=== PATIENT | male | born 1990 | race Caucasian/White ===

== ENCOUNTER 2017-08-12 10:20 | Inpatient (IN) | payer BC, OTHER ==
--- NOTE | 2017-08-11 20:20 | NUR ---
EMMANUEL Avendaño Pt reports abdominal cramps. EMMANUEL Avendaño administered. Addendum: 08/13/17 at 0241 by APRIL KRUGER RN Incorrect note date.
[~2017-08-12] VITALS: Ht 180.3 cm; Wt 95.3 kg
[2017-08-12 11:15] VITALS: BP 120/80
--- NOTE | 2017-08-12 12:21 | NUR ---
PREADMISSION NOTE 27 year old admitted for substance abuse and detox for ETOH, Xanax, opiates/oxycodone. BP 120/80. Pulse 77. RR 16. Oxygen saturation 97 percent. Appearance calm, no sweating or tremors, no flushing. No history of seizure. NKA, NKFA. History of anxiety. Substance use history: 1. ETOH, using since age 16 years old, using daily, 15-18 beers/day., using at this rate x 4 years. Last use one hour prior to admission, states since this am he has had 40 oz. beer plus 4 cans of beer, 100 ml tequila. 2. Xanax, using since age 16 years old. Using daily 3 mg/day PO. Last use 0545, took 2 mg. 3. Oxycodone, using 30-90 mg/day, PO. Using at this rate x 2 monthsLast use last night at 6 pm. Home medication list as follows but states he has not been taking his medications for 1-2months. Paxily 20 mg po QD for anxiety. Librium 0.5 mg PO gerry for anxiety and detox from ETOH. Pt escorted to room 302 by [facility]. Skin check done by CONSTANCE Fields, who states skin intact. RN to complete admission. Bed in low position and locked, side rails up x 2 and padded, call light within reach.
--- NOTE | 2017-08-12 12:30 | NUR ---
ADMISSION NOTE 27 year old admitted for substance abuse and detox for ETOH, Xanax, opiates/oxycodone. Vitals at 1115 in intake, BP 120/80. Pulse 77. RR 16. Oxygen saturation 97 percent. Appearance calm, no sweating or tremors, no flushing. Intake in progress. No history of seizure. NKA, NKFA. History of anxiety disorder. Substance use history: 1. ETOH, using since age 16 years old, using daily, 15-18 beers/day., using at this rate x 4 years. Last use one hour prior to admission, states since this am he has had 40 oz. beer plus 4 cans of beer, 100 ml tequila. 2. Xanax, using since age 16 years old. Using daily 3 mg/day PO. Last use 0545, took 2 mg. 3. Oxycodone, using 30-90 mg/day, PO. Using at this rate x 2 monthsLast use last night at 6 pm. Home medication list as follows but states he has not been taking his medications for 1-2months. Paxily 20 mg po QD for anxiety. Librium 0.5 mg PO gerry for anxiety and detox from ETOH. 1230, Pt escorted to room 302 by [facility]. Pt is primary source of information. CIWA 1 and COWS 1. Skin check done by CONSTANCE Fields, who states skin intact. UDS provided by patient. Pt awake, alert, oriented x 4, gait steady, ambulatory without assistance. Speech coherent. Weight 210 lb., height 5 foot 11 inches. Denies history of seizure. Refusing flu and pneumonia vaccines, states he "is not comfortable taking it", would not be more specific. Full code. Regular diet. No home medications brought to [facility]. Pt states history of home medication of Paxil 20 mg per day but that he has not taken in 2 months and does not want to take the medication. Pt did not bring medication with him to [facility]. Pt also states he was prescribed Librium one month ago to help him with detox at home. History of admission for suicide attempt within the last month. Pt states he was intoxicated and does not remember the event, but was told that he threatened to kill himself with a knife. Family called 911. Pt reports that he was released after 24 hours and that he was determined to not be suicidal. Also history of open reduction and internal fixation of fracture of right hand. Pt has bruise to above right eye, skin is intact, bruise is pink in color. Pt reports he received the bruise while practicing martial arts. Photo not taken as skin is intact, no wound care needed. Fall and seizure precautions in place. Lives with renu. Only surgery of open reduction and internal fixation fracture of right hand. Denies pain. Family history of mother and father having alcoholism and sister with history of heroin use. History of detox treatment at age 19, but when discharged did not go to sober living but instead went home and felt he did not have a problem. Internal motivation for this admission is that "I stole from my mom", also states his substance use is affecting his relationships with fiance and family and is also hurting them. Pt cooperative, friendly, does not appear intoxicated other than flushed face. States he flew in from [place] and so is fatigued. Skin warm, pink, good capillary refill, lungs clear to auscultation, S1and S2 heart tones regular. No tremors or sweating. Denies tingling, nausea, headache, pain. No edema. Abdomen soft, bowel sounds WNL and present all 4 quadrants. Pt oriented to unit and equipment. Lunch provided. Bed in low position and locked, side rails up x 2 and padded, call light within reach. Will continue to monitor.
[2017-08-12] MEDS ORDERED: LORAZEPAM 1 MG TABLET PO PRN ×2 (13:30)
[2017-08-12] MEDS ORDERED: ONDANSETRON 4 MG/2 ML VIAL IM PRN (13:30)
[2017-08-12] MEDS ORDERED: THIAMINE HCL 200 MG/2 ML VIAL IM ONE (13:30)
[2017-08-12] MEDS ORDERED: ACETAMINOPHEN 325 MG TABLET PO PRN (13:30)
[2017-08-12] MEDS ORDERED: MAG HYDROX/AL HYDROX/SIMETH 30 ML LIQUID UDC PO PRN (13:30)
[2017-08-12] MEDS ORDERED: BUPRENORPHINE HCL 2 MG TAB.SUBL SL PRN (13:30)
[2017-08-12] MEDS ORDERED: METHOCARBAMOL 750 MG TABLET PO PRN (13:30)
[2017-08-12] MEDS ORDERED: LORAZEPAM 2 MG/1 ML VIAL IM PRN (13:30)
[2017-08-12] MEDS ORDERED: ONDANSETRON ODT 4 MG TAB.RAPDIS SL PRN (13:30)
[2017-08-12] MEDS ORDERED: IBUPROFEN 600 MG TABLET PO PRN (13:30)
[2017-08-12] MEDS ORDERED: LOPERAMIDE HCL 2 MG CAPSULE PO PRN ×2 (13:30)
[2017-08-12] MEDS ORDERED: CLONIDINE HCL 0.1 MG TABLET PO PRN (13:30)
[2017-08-12 14:53] LABS: *AMPHETAMINE, URINE NEGATIVE (NEGATIVE); *BARBITURATE, URINE NEGATIVE (NEGATIVE); *CANNABINOID, URINE NEGATIVE (NEGATIVE); *COCCAINE, URINE NEGATIVE (NEGATIVE); *OPIATE, URINE NEGATIVE (NEGATIVE); *PHENCYCLIDINE SCREEN,URINE NEGATIVE (NEGATIVE)
[2017-08-12 15:00] LABS: BASOPHILS % (AUTO) 0.5 % (0.0-2.0); EOSINOPHILS # (AUTO) 0.1 K/uL (0.0-0.7); EOSINOPHILS % (AUTO) 1.1 % (0.0-7.0); HEMATOCRIT 46.8 % (40-50); HEMOGLOBIN 15.8 G/DL (14.0-18.0); LYMPHOCYTES % (AUTO) 36.4 % (20.5-51.5); MEAN CORPUSCULAR HEMOGLOBIN 30.3 UUG (27.0-31.0); MEAN CORPUSCULAR HGB CONC 34 g/dL (32.0-37.0); MONOCYTES # (AUTO) 0.5 K/UL (0.1-1.30); MONOCYTES % (AUTO) 8.2 % (0.0-11.0); NEUTROPHILS % (AUTO) 53.8 % (38.5-71.5); PLATELET COUNT (AUTO) 247 K/UL (150-450); WHITE BLOOD COUNT (AUTO) 5.6 K/UL (4.0-11.2)
[2017-08-12 15:09] LABS: BILIRUBIN,TOTAL 0.3 mg/dL (0.2-1.0); CREATININE 1.3 mg/dL (0.6-1.3); POTASSIUM 4.4 mmol/L (3.5-5.1); TOTAL PROTEIN, SERUM 7.7 g/dL (6.4-8.2)
[2017-08-12 17:00] VITALS: BP 114/63
--- NOTE | 2017-08-12 19:31 | NUR ---
END OF SHIFT NOTE 27 year old admitted at 1230 today for substance abuse and detox for ETOH, Xanax, opiates/oxycodone. No history of seizure. NKA, NKFA. History of anxiety disorder. Skin intact. UDS provided by patient. Full code. Regular diet. Denies suicidal ideation, however, history of admission for suicide attempt within the last month. Pt states he was intoxicated and does not remember the event, but was told that he threatened to kill himself with a knife. Family called 911. Pt reports that he was released after 24 hours and that he was determined to not be suicidal. Suicidal assessment documented. Also history of open reduction and internal fixation of fracture of right hand. Pt has bruise to above right eye, skin is intact, bruise is pink in color. Pt reports he received the bruise while practicing martial arts. Photo not taken as skin is intact, no wound care needed. Fall and seizure precautions in place. CIWA 1 and COWS 1 at 1230. CIWA 1 and COWS 1 at 1700. Poor appetite, ate 25 percent of lunch and dinner. Fluid intake 650 ml, void x 1. Report given to night RN. Bed in low position and locked, side rails up x 2 and padded, call light within reach.
--- NOTE | 2017-08-12 19:45 | NUR ---
START OF SHIFT Received report from day shift nurse. Pt is lying in bed watching TV. He is a 27 yo male admitted to [facility] today for ETOH, BZD, and opioid dependence. He is A&O x4 and ambulatory. NKA, full code status, and on a regular diet. PMH of anxiety, suicide attempt this past month, right hand fracture. On admission pt reported drinking 15-18 beers per day, taking Xanax 3mg per day, and taking oxycodone 30-90mg per day. 5 day subutex and 5 day Ativan tapers to start tomorrow. He reports anxiety, stomach cramps, and is observed with facial flushing. Ativan order noted for tonight. Fall and seizure precautions in place. Bed is down with call light in reach.
[2017-08-12 20:00] VITALS: BP 119/74
[2017-08-12] MEDS: DICYCLOMINE HCL 20 MG TABLET PO PRN (20:19)
--- NOTE | 2017-08-12 20:20 | NUR ---
PRN Bentyl Pt reports abdominal cramps. PRN Bentyl administered.
[2017-08-12] MEDS ORDERED: LORAZEPAM 1 MG TABLET PO SCH (21:00)
--- NOTE | 2017-08-12 21:20 | NUR ---
PRN Kateryna reassessment Pt reports abdominal cramps are relieved.
[2017-08-12 23:30] VITALS: BP 127/78
[2017-08-12] MEDS ORDERED: diphenhydrAMINE 25 MG CAP PO ONE ×3 (23:30→23:49)
--- NOTE | 2017-08-12 23:31 | NUR ---
PRN Benadryl Pt reports inability to sleep. PRN Benadryl administered.
[2017-08-13] VITALS: BP 127/78
--- NOTE | 2017-08-13 00:31 | NUR ---
PRN Benadryl reassessment PRN Benadryl effective. Pt is lying in bed resting with eyes closed. Respirations even and unlabored. Safety measures in place.
[2017-08-13 04:00] VITALS: BP 120/69
--- NOTE | 2017-08-13 04:00 | NUR ---
0400 COWS and CIWA deferred COWS and CIWA ordered Q4HWA. Pt is lying in bed resting with eyes closed. Vital signs obtained. Safety measures in place.
--- NOTE | 2017-08-13 07:22 | NUR ---
END OF SHIFT Report provided to day shift nurse. Pt is lying in bed resting. He is a 27 yo male admitted to [facility] today for ETOH, BZD, and opioid dependence. He is A&O x4 and ambulatory. NKA, full code status, and on a regular diet. PMH of anxiety, suicide attempt this past month, right hand fracture. On admission pt reported drinking 15-18 beers per day, taking Xanax 3mg per day, and taking oxycodone 30-90mg per day. He is scheduled to start 5 day subutex and 5 day ativan tapers today. PRN Benadryl and Bentyl administered. Last COWS 3 and CIWA 2. He drank 480mL and slept for 5 hours. Fall and seizure precautions in place. Bed is down with call light in reach.
--- NOTE | 2017-08-13 08:00 | NUR ---
START OF SHIFT NOTE 27 yo male admitted to [facility] today for ETOH, BZD, and opioid dependence. He is A&O x4 and ambulatory. NKA, full code status, and on a regular diet. PMH of anxiety, suicide attempt this past month, right hand fracture. Received report from night RN. Last COWS 3 and CIWA 2 at midnight. Slept 5 hours. Received Ativan x 1 PRN at 2100 and also PRN Bentyl and Benadryl. On 0800 nursing rounds, pt is alert and oriented. Bed in low position, locked, side rails up x 2 and padded, call light within reach, will continue to monitor.
[2017-08-13] MEDS: MULTIVITAMINS,THERAPEUTIC TABLET PO SCH (08:12)
[2017-08-13] MEDS: THIAMINE HCL 100 MG TABLET PO SCH (08:12)
[2017-08-13] MEDS: FOLIC ACID 1 MG TABLET PO SCH (08:13)
[2017-08-13] MEDS: LORAZEPAM 1 MG TABLET PO SCH ×4 (08:13→21:37)
[2017-08-13] MEDS: BUPRENORPHINE HCL 2 MG TAB.SUBL SL SCH ×4 (08:13→21:37)
[2017-08-13 08:27] VITALS: BP 138/89
[2017-08-13] MEDS ORDERED: TUBERCULIN,PURIF.PROT.DERIV. 5 TU/0.1 ML TEST ID ONE (09:00)
[2017-08-13 09:06] LABS: HEPATITIS B SURFACE AG Negative (Negative)
[2017-08-13] MEDS: DICYCLOMINE HCL 20 MG TABLET PO PRN (11:48)
--- NOTE | 2017-08-13 11:48 | NUR ---
PRN MEDICATION ADMINISTRATION Pt reporting stomach cramps and nausea. Given Bentyl and Zofran SL PRN. Will reassess.
[2017-08-13 12:00] VITALS: BP 139/91
--- NOTE | 2017-08-13 12:16 | NUR ---
PRN MEDICATION REASSESSMENT Pt reports decrease in nausea after SL Zofran PRN. Will continue to monitor.
--- NOTE | 2017-08-13 12:48 | NUR ---
PRN MEDICATION REASSESSMENT Pt reports resolution of stomach cramps post Bentyl PRN and also resolution of nausea.
[2017-08-13 17:00] VITALS: BP 104/66
--- NOTE | 2017-08-13 19:00 | NUR ---
END OF SHIFT NOTE 27 yo male admitted to [facility] today for ETOH, BZD, and opioid dependence. He is A&O x4 and ambulatory. NKA, full code status, and on a regular diet. PMH of anxiety, suicide attempt this past month, right hand fracture. Received Bentyl and Zofran SL at 1148 for stomach cramping and mild nausea. Both medications effective for relief of symptoms. COW 7 and CIWA 10 at 1700, however pt received 1700 scheduled dose of Ativan 2 mg and Subutex 4 mg at 1700 as well. Eating 75-100 percent of meals, fluid intake 5000 ml, void x 8. Report given to night RN. Bed in low position, locked, side rails up x 2 and padded, call light within reach.
--- NOTE | 2017-08-13 19:45 | NUR ---
START OF SHIFT Received report from day shift nurse. Pt is lying in bed resting. He is a 27 yo male admitted to [facility] on 08/12 for ETOH, BZD, and opioid dependence. He is A&O x4 and ambulatory. NKA, full code status, and on a regular diet. PMH of anxiety, suicide attempt this past month, right hand fracture. Upon admission pt admitted to drinking 15-18 beers per day, taking Xanax 3mg per day, and taking oxycodone 30-90mg per day. 5 day subutex and 5 day Ativan tapers to start tomorrow. Medications are working well to manage withdrawal symptoms. He reports mild low back pain and mild headache. Pt denies SI/HI Fall and seizure precautions in place. Bed is down with call light in reach.
[2017-08-13 20:00] VITALS: BP 132/97
[2017-08-13] MEDS: diphenhydrAMINE 50 MG CAPSULE PO PRN (21:37)
--- NOTE | 2017-08-13 21:38 | NUR ---
PRN Benadryl Pt reports inability to sleep. PRN Benadryl administered.
--- NOTE | 2017-08-13 22:38 | NUR ---
PRN Benadryl reassessment PRN Benadryl effective. Pt is lying in bed resting with eyes closed. Respirations even and unlabored. Safety measures in place.
[2017-08-14] VITALS (7 sets, daily range): BP systolic 118–138; BP diastolic 68–91
--- NOTE | 2017-08-14 | NUR ---
0000 COWS and CIWA deferred COWS and CIWA ordered Q4HWA. Pt is lying in bed resting with eyes closed. Vital signs obtained. Safety measures in place.
--- NOTE | 2017-08-14 04:00 | NUR ---
0400 COWS and CIWA deferred COWS and CIWA ordered Q4HWA. Pt is lying in bed resting with eyes closed. Vital signs obtained. Safety measures in place.
--- NOTE | 2017-08-14 07:16 | NUR ---
END OF SHIFT Report provided to day shift nurse. Pt is lying in bed resting. He is a 27 yo male admitted to [facility] on 08/12 for ETOH, BZD, and opioid dependence. He is A&O x4 and ambulatory. NKA, full code status, and on a regular diet. PMH of anxiety, suicide attempt this past month, right hand fracture. Upon admission pt admitted to drinking 15-18 beers per day, taking Xanax 3mg per day, and taking oxycodone 30-90mg per day. 5 day subutex and 5 day Ativan tapers started yesterday. Pt is compliant with treatment. PRN Benadryl administered. Last COWS 3 and CIWA 3. He drank 1680mL and slept for 8 hours. Fall and seizure precautions in place. Bed is down with call light in reach.
--- NOTE | 2017-08-14 08:00 | NUR ---
START OF SHIFT NOTE 27 yo male admitted to [facility] today for ETOH, BZD, and opioid dependence. He is A&O x4 and ambulatory. NKA, full code status, and on a regular diet. PMH of anxiety, suicide attempt this past month, right hand fracture. Received report from night RN. Last COWS 3 and CIWA 3 at 8pm, slept 8 hours. Received PRN Benadryl. On 0800 nursing rounds, pt is alert and oriented. Bed in low position, locked, side rails up x 2 and padded, call light within reach, will continue to monitor.
[2017-08-14] MEDS: THIAMINE HCL 100 MG TABLET PO SCH (09:43)
[2017-08-14] MEDS: LORAZEPAM 1 MG TABLET PO SCH ×3 (09:43→20:18)
[2017-08-14] MEDS: FOLIC ACID 1 MG TABLET PO SCH (09:43)
[2017-08-14] MEDS: MULTIVITAMINS,THERAPEUTIC TABLET PO SCH (09:43)
[2017-08-14] MEDS: BUPRENORPHINE HCL 2 MG TAB.SUBL SL SCH ×3 (09:44→20:18)
--- NOTE | 2017-08-14 13:45 | NUR ---
Activity Group Note: Client attended activity group today. Client refused to participate in "Sequence" activity stating, "I would rather watch because I do not know how to play." Client appeared to have a depressed mood with flat affect. Client interacted with peers and left group 20 minutes early. facilities maintenance worker will continue to encourage participation.
[2017-08-14] MEDS: GABAPENTIN 300 MG CAPSULE PO SCH ×2 (14:41→20:18)
--- NOTE | 2017-08-14 17:19 | NUR ---
PRN MEDICATION ADMINISTRATION BP 138/90. Given Clonidine PRN. Will reassess.
--- NOTE | 2017-08-14 18:19 | NUR ---
PRN MEDICATION REASSESSMENT Given clonidine PRN at 1719 for BP 138/90. At 1819, BP 131/88.
--- NOTE | 2017-08-14 19:15 | NUR ---
START OF SHIFT Received 27 year old male patient admitted on 08/12/17 for ETOH, Xanax and Oxycodone dependency. Pt is full code with NKA. He reports a PMHx of anxiety, suicide attempt (this month), and fracture on right hand. He reports using ETOH 15-18 beers daily for 4 years. Last dose was 4 beers, 40 oz beer, and 4 shots of tequila. Xanax 3 mg daily for 5 months. Last dose was 2 mg on 08/12/17. And Oxycodone 30-90mg daily for 2 months. Last dose was 70 mg on 08/11/17. Pt currently receiving 5 day Subutex and 5 day Ativan taper and tolerating well. Per endorsement, pt received PRN Clonidine. Pt is alert and oriented x4, breathing is even and unlabored. Safety measures in place. Will continue to monitor.
--- NOTE | 2017-08-14 19:15 | NUR ---
END OF SHIFT NOTE 27 yo male admitted to [facility] today for ETOH, BZD, and opioid dependence. He is A&O x4 and ambulatory. NKA, full code status, and on a regular diet. PMH of anxiety, suicide attempt this past month, right hand fracture. Given Clonidine at 1719 for BP 138/90. At 1819, BP 131/88. Tolerating Ativan and Subutex taper as evidenced by the following scores. At 0800, COWS 3/CIWA 2. At 1200, COWS 4/CIWA 5. At 1700, COWS 2/CIWA 2. Consuming 100 percent of meals. Fluid intake 3000 ml. Void x 5. Stool x 0. Report given to night RN. Bed in low position, locked, side rails up x 2 and padded, call light within reach
[2017-08-14] MEDS: diphenhydrAMINE 50 MG CAPSULE PO PRN (20:18)
--- NOTE | 2017-08-14 20:18 | NUR ---
PRN BENADRYL Pt complains of inability to sleep. PRN Benadryl administered as ordered. Breathing is even and unlabored. Safety measures in place. Will monitor effectiveness.
--- NOTE | 2017-08-14 21:18 | NUR ---
PRN REASSESSMENT PRN medication not effective. Pt appears drowsy and reports he is ready to sleep. Will continue to monitor.
--- NOTE | 2017-08-15 | NUR ---
VITALS REFUSED, COWS/CIWA DEFERRED 0000 vitals refused, COWS and CIWA deferred d/t pt lying in bed with eyes closed noted to be asleep. Respirations 16, breathing even and unlabored. Safety measures in place. Will monitor.
--- NOTE | 2017-08-15 04:00 | NUR ---
VITALS REFUSED, COWS/CIWA DEFERRED 0400 vitals refused, COWS and CIWA deferred d/t pt lying in bed with eyes closed noted to be asleep. Respirations 16, breathing even and unlabored. Safety measures in place. Will monitor.
--- NOTE | 2017-08-15 07:03 | NUR ---
END OF SHIFT Pt is a 27 year old male patient admitted on 08/12/17 for ETOH, Xanax and Oxycodone dependency. Pt is full code with NKA. He reports a PMHx of anxiety, suicide attempt (this month), and fracture on right hand. Pt continues on a 5 day Subutex and 5 day Ativan taper, currently on day 3/5 and tolerating well. At 2018 he received PRN Benadryl. He slept a total of 8 hrs, Intake: 2025mL, Void: x4, BM:0, COWS:4, CIWA:4. Pt remains alert and oriented x4, breathing is even and unlabored. Safety measures in place. Will endorse to AM shift.
--- NOTE | 2017-08-15 07:05 | NUR ---
Start of shift note SBAR report rcv'd. Pt is admitted for benzo, ETOH and opiate dependence. Pt has a PMHx of a anxiety an da suicide attempt. Pt denies SI per report at this time. Pt is on a 5 day ativan and 5 day subutex taper on day 3. Pt is a full code, on a regular diet and denies any allergies to any medications. Pt is currently resting in bed, pt has no complaints at this time. Will continue to monitor pt. All needs addressed at this time.
[2017-08-15 08:00] VITALS: BP 147/81
[2017-08-15] MEDS ORDERED: BUPRENORPHINE HCL 2 MG TAB.SUBL SL SCH (09:00)
[2017-08-15] MEDS: MULTIVITAMINS,THERAPEUTIC TABLET PO SCH (09:26)
[2017-08-15] MEDS: GABAPENTIN 300 MG CAPSULE PO SCH ×3 (09:27→21:09)
[2017-08-15] MEDS: THIAMINE HCL 100 MG TABLET PO SCH (09:27)
[2017-08-15] MEDS: LORAZEPAM 1 MG TABLET PO SCH ×2 (09:27→13:03)
[2017-08-15] MEDS: FOLIC ACID 1 MG TABLET PO SCH (09:27)
--- NOTE | 2017-08-15 09:59 | NUR ---
Therapist prompted client about group times. Client stated he will attend all groups today.
[2017-08-15 12:00] VITALS: BP 130/90
--- NOTE | 2017-08-15 12:15 | NUR ---
MD communication Pt has a heart rate ranging from 115-120. Pt states that he's feeling a little anxious but that he doesn't need anything. Dr Veliz aware. NNO. Will continue to monitor pt.
[2017-08-15] MEDS: BUPRENORPHINE HCL 2 MG TAB.SUBL SL SCH ×2 (14:31→21:02)
--- NOTE | 2017-08-15 14:32 | NUR ---
Medication refusal Pt states that he "feels good" and doesn't want to take his subutex or gabapentin. Instructed pt that his next dose is at 2100. Verbalized his understanding. Will continue to monitor pt.
[2017-08-15 16:00] VITALS: BP 106/76
[2017-08-15] MEDS ORDERED: LORAZEPAM 1 MG TABLET PO SCH ×2 (17:00→21:00)
--- NOTE | 2017-08-15 18:56 | NUR ---
End of shift note Pt is admitted for benzo, ETOH and opiate dependence . Pt is a full code, on a regular diet and denies any allergies to any medications. Pt has a PMHx of a anxiety and a previous suicide attempt. Pt denies SI per report at this time. Pt is on a 5 day ativan and 5 day subutex taper on day 3 and tolerating very well without any ASE. Pt refused 1500 subutex, stated I dont like the way it makes me feel. Pt states that he wants to take his 2100 dose. Pt has no further complaints at this time. At 1600 pt had a COWS of 3 and CIWA of 2. Pt ate 100% of meals and drank 2275ml of fluids, had 4 voids and 2 BMs during the shift. All needs addressed at this time. Will endorse SBAR to oncoming nurse.
--- NOTE | 2017-08-15 19:15 | NUR ---
START OF SHIFT Received 27 year old male patient admitted on 08/12/17 for ETOH, Xanax and Oxycodone dependency. Pt is full code with NKA. He reports a PMHx of anxiety, suicide attempt (this month), and fracture on right hand. He reports using ETOH 15-18 beers daily for 4 years. Last dose was 4 beers, 40 oz beer, and 4 shots of tequila. Xanax 3 mg daily for 5 months. Last dose was 2 mg on 08/12/17. And Oxycodone 30-90mg daily for 2 months. Last dose was 70 mg on 08/11/17. Pt currently receiving 5 day Subutex and 5 day Ativan taper and tolerating well. Per endorsement, pt refused 1500 dose of Subutex and Gabapentin, he did not receive or request PRN medicaitons. Pt is alert and oriented x4, breathing is even and unlabored. Safety measures in place. Will continue to monitor.
[2017-08-15 20:00] VITALS: BP 109/76
[2017-08-15] MEDS: diphenhydrAMINE 50 MG CAPSULE PO PRN (21:02)
--- NOTE | 2017-08-15 21:02 | NUR ---
PRN BENADRYL/MIRALAX Pt complains of inability to sleep and constipation. PRN Benadryl and Miralax administered as ordered. Will monitor effectiveness.
[2017-08-15] MEDS: MIRALAX 17 GM POWD.PACK PO PRN (21:04)
--- NOTE | 2017-08-15 22:02 | NUR ---
PRN REASSESSMENT PRN Benadryl effective. Pt lying in bed with eyes closed noted to be asleep. Will continue to monitor effectiveness of PRN Miralax. Safety measures in place. Will monitor.
--- NOTE | 2017-08-16 | NUR ---
VITALS REFUSED, COWS/CIWA DEFERRED 0000 vitals refused. COWS and CIWA deferred d/t pt lying in bed with eyes closed noted to be asleep. Respirations 16, breathing even and unlabored. Safety measures in place. Will monitor.
--- NOTE | 2017-08-16 04:00 | NUR ---
VITALS REFUSED, COWS/CIWA DEFERRED 0400 vitals refused. COWS and CIWA deferred d/t pt lying in bed with eyes closed noted to be asleep. Respirations 16, breathing even and unlabored. Safety measures in place. Will monitor.
--- NOTE | 2017-08-16 07:04 | NUR ---
END OF SHIFT Pt is a 27 year old male patient admitted on 08/12/17 for ETOH, Xanax and Oxycodone dependency. Pt is full code with NKA. He reports a PMHx of anxiety, suicide attempt (this month), and fracture on right hand. He continues on a 5 day Subutex and 5 day Ativan taper and tolerating well. At 2102 he received PRN Benadryl and Miralax. He slept a total of 6 hrs, Intake:2,180mL, Void:x2, BM:x1, COWS:3, CIWA:3. Pt remains alert and oriented x4, breathing is even and unlabored. Safety measures in place. Will endorse to oncoming shift.
--- NOTE | 2017-08-16 07:30 | NUR ---
start of shift note: received pt from night nurse nurse, pt is in stable condition. pt is admitted to [facility] ETOH/BENZO/OPIATE withdrawal/dependence. pt's last cows 3 and ciwa 3 and pt slept for 6 hrs. will monitor pt for any changes and any A/R to medications.
[2017-08-16] MEDS: BUPRENORPHINE HCL 2 MG TAB.SUBL SL SCH ×3 (08:57→21:00)
[2017-08-16] MEDS: THIAMINE HCL 100 MG TABLET PO SCH (08:57)
[2017-08-16] MEDS: GABAPENTIN 300 MG CAPSULE PO SCH ×3 (08:57→21:00)
[2017-08-16] MEDS: LORAZEPAM 1 MG TABLET PO SCH ×3 (08:57→21:00)
[2017-08-16] MEDS: MULTIVITAMINS,THERAPEUTIC TABLET PO SCH (08:57)
[2017-08-16] MEDS: FOLIC ACID 1 MG TABLET PO SCH (08:57)
[2017-08-16 09:00] VITALS: BP 125/85
[2017-08-16 12:34] VITALS: BP 136/83
[2017-08-16] MEDS: MIRALAX 17 GM POWD.PACK PO PRN (14:45)
--- NOTE | 2017-08-16 14:45 | NUR ---
PRN ADMINISTRATION: prn miralax was administered for constipation will re-assess effectiveness
[2017-08-16] MEDS: DOCUSATE SODIUM 250 MG CAPSULE PO SCH (14:46)
--- NOTE | 2017-08-16 15:45 | NUR ---
PRN re-assessment: pt verbalized it was not effective, verbalized that i will call MD with update regarding his constipation, pt verbalized he will wait until tomorrow to see if medications will work tonight
[2017-08-16 17:35] VITALS: BP 121/79
--- NOTE | 2017-08-16 18:59 | NUR ---
end of shift note: pt is in stable condition, pt is admitted to [facility] for ETOH/OPIATE WITHDRAWAL/DEPENDENCE. PT TOLERATED TAPER MEDICATIONS WELL. NO A/R NOTED. PT VERBALIZED NO BOWEL MOVEMENT THROUGHOUT THE SHIFT. ENCOURAGED PT TO DRINK PRUNE JUICE, INCREASE FLUIDS. ADMINISTERED MEDICATIONS ORDERED. PT VERBALIZED HE WILL INCREASED FIBER AT DINNER. PT VERBALIZED HE WILL WAIT TILL TONIGHT HOPEFULLY MEDICATIONS WILL KICK IN LATER. WILL ENDORSE TO TRIPE WASHER NURSE TO F/U ON BOWEL MOVEMENTS. PTS LAST COWS 3 AND CIWA 3.
--- NOTE | 2017-08-16 19:15 | NUR ---
START OF SHIFT Received 27 year old male patient admitted on 08/12/17 for ETOH, Xanax and Oxycodone dependency. Pt is full code with NKA. He reports a PMHx of anxiety, suicide attempt (this month), and fracture on right hand. He reports using ETOH 15-18 beers daily for 4 years. Last dose was 4 beers, 40 oz beer, and 4 shots of tequila. Xanax 3 mg daily for 5 months. Last dose was 2 mg on 08/12/17. And Oxycodone 30-90mg daily for 2 months. Last dose was 70 mg on 08/11/17. Pt currently receiving 5 day Subutex and 5 day Ativan taper and tolerating well. Per endorsement, pt received PRN Miralax and a new order for stool softener. Pt is alert and oriented x4, breathing is even and unlabored. Safety measures in place. Will continue to monitor.
[2017-08-16 20:00] VITALS: BP 131/90
[2017-08-16] MEDS: diphenhydrAMINE 50 MG CAPSULE PO PRN (21:00)
--- NOTE | 2017-08-16 21:00 | NUR ---
PRN BENADRYL/MEDICATION REFUSAL Pt refused 2100 dose of Subutex. Pt stated " I don't want it, I'll be fine" Risks and benefits were explained. Pt still refused. Pt reports inability to sleep. PRN Benadryl administered as ordered. Will monitor effectiveness.
--- NOTE | 2017-08-16 22:00 | NUR ---
PRN BENADRYL REASSESSMENT PRN medication effective. Pt is lying in bed with eyes closed noted to be asleep. Breathing even and unlabored. Safety measures in place. Will monitor
--- NOTE | 2017-08-17 | NUR ---
VITALS REFUSED, COWS/CIWA DEFERRED Pt refused vitals for 0000. COWS and CIWA deferred d/t pt lying in bed with eyes closed noted to be asleep. Respirations 16, breathing even and unlabored. Safety measures in place. Will monitor.
--- NOTE | 2017-08-17 04:00 | NUR ---
VITALS REFUSED, COWS/CIWA DEFERRED Pt refused vitals for 0400. COWS and CIWA deferred d/t pt lying in bed with eyes closed noted to be asleep. Respirations 16, breathing even and unlabored. Safety measures in place. Will monitor.
--- NOTE | 2017-08-17 07:07 | NUR ---
END OF SHIFT Pt is a 27 year old male patient admitted on 08/12/17 for ETOH, Xanax and Oxycodone dependency. Pt is full code with NKA. He continues on a 5 day Subutex and 5 day Ativan taper and tolerating well. He refused his 2100 dose of Subutex and at 2100 he received PRN Benadryl. He still complained of not having BM. Encouraged fluids and prune juice. He slept a total of 7hrs, Intake: 2,210mL, Void: x4, BM:0, COWS:3, CIWA:3. Pt remains alert and oriented x4, breathing is even and unlabored. Safety measures in place. Will endorse.
--- NOTE | 2017-08-17 07:08 | NUR ---
Star of Shift Notes: Received patient in his room. Alert and verbally responsive. Able to make his needs known. Respirations even and unlabored. No SOB noted. SKin warm and dry to touch. Abdomen soft and non-distended. BS (+) in all 4 quadrants. No complains of N/V/D or constipation noted. Bladder non-distended. BS (+) in all 4 quadrants. No complains of dysuria. Ambulatory ad tanner with steady gait. Patient is a 27 year old male admitted for ETOH/opiate and BZO dependence who was placed on a 5-day Subutex and 5-day Ativan taper as ordered. No adverse reactions noted. Prior to admission, patient was using 15-18 beers of ETOH, 3 mg of Xanax, and 30-90 mg of Oxycodone. Has past medical hx of anxiety, suicide attempts, SA and fracture on right hand. NKA. FULL CODE. Regular diet. Educated patient on his current plan of care for the day and his medication regimen. Encouraged oral fluid intake and encouraged group participation to learn new skills to prevent relapse. Will continue to monitor
[2017-08-17 08:00] VITALS: BP 128/82
[2017-08-17] MEDS: THIAMINE HCL 100 MG TABLET PO SCH (08:24)
[2017-08-17] MEDS: FOLIC ACID 1 MG TABLET PO SCH (08:24)
[2017-08-17] MEDS: MULTIVITAMINS,THERAPEUTIC TABLET PO SCH (08:24)
[2017-08-17] MEDS: GABAPENTIN 300 MG CAPSULE PO SCH ×3 (08:24→21:12)
[2017-08-17] MEDS: LORAZEPAM 1 MG TABLET PO SCH ×2 (08:24→21:12)
[2017-08-17] MEDS: DOCUSATE SODIUM 250 MG CAPSULE PO SCH (08:24)
[2017-08-17] MEDS: BUPRENORPHINE HCL 2 MG TAB.SUBL SL SCH ×2 (09:00→21:13)
--- NOTE | 2017-08-17 09:11 | NUR ---
Subutex 2 mg SL at 0900 not administered: Patient refused Subutex 2 mg SL at 0900. Educated patient on risk and benefits but patient still refused. Will notify MD and encourage the patient to take med. Will continue to monitor closely.
[2017-08-17] MEDS ORDERED: MAGNESIUM CITRATE 296 ML BOTTLE PO PRN (11:15)
[2017-08-17 12:00] VITALS: BP 133/90
--- NOTE | 2017-08-17 13:00 | NUR ---
Communication: Notified Dr. Veliz that patient refused Subutex 2 mg SL at 0900. Will continue to monitor.
[2017-08-17 16:00] VITALS: BP 122/81
--- NOTE | 2017-08-17 18:51 | NUR ---
End of Shift Notes: Patient continues to be on 5-day Ativan and 5-day Subutex taper to manage withdrawal symptoms related to opiates and benzos. Patient is tolerating taper well. No adverse reactions noted. Refused 0900 Subutex today after much encouragement and education. VS monitored closely. No significant abnormalities noted. Withdrawal symptoms were closely monitored. Initial COWS 5/CIWA 5, patient presented with anxiety, chills, hot flashes and myalgia. Last COWS 2/CIWA 3. Per patient, Ativan and Subutex has been effective in reducing his withdrawal symptoms. Participated in group and activities. Patient adheres to unit policy. Mag Citrate 1 bottle ordered for constipation. Had x 2 episodes of bowel movement during the shift. All needs met and attended. Will continue to monitor closely.
--- NOTE | 2017-08-17 19:30 | NUR ---
END OF SHIFT Pt is a 27 y/o male admitted on 08/12/17 for ETOH, benzo, and opiate dependence. Pt was dependent on 15-18 beers daily, 3 mg of xanax daily, and oxycodone 30-90 mg daily. Pt is on seizure/fall precautions. No known seizure history. Pt reports PMH of anxiety, SI (most recent attempt this month), fracture in right hand, and ADHD. Pt is on a 5 day Ativan and 5 day Subutex taper started on 08/13/17, tolerating well. Upon assessment pt is sitting in bed and presents with moderate anxiety, mild restlessness, anhedonia, decreased appetite and flushed skin. Respirations 16, even and unlabored. Denies N/V/D. Denies chest pain or SOB. Medications due. Safety measures in place. Call light within reach. Will continue to monitor.
[2017-08-17 20:00] VITALS: BP 138/93
[2017-08-17] MEDS: diphenhydrAMINE 50 MG CAPSULE PO PRN (21:13)
--- NOTE | 2017-08-17 21:13 | NUR ---
PRN BENADRYL 50 MG Pt requests sleep aid. Safety measures in place Call light within reach. Will continue to monitor.
--- NOTE | 2017-08-17 22:13 | NUR ---
PRN BENADRYL REASSESSMENT Pt is laying in bed with eyes closed. Respirations 16, even and unlabored. Safety measures in place Call light within reach. Will continue to monitor.
--- NOTE | 2017-08-18 | NUR ---
COW/CIWA DEFERRED AND VITALS REFUSED Pt is laying in bed with eyes closed. COW/CIWA deferred, to be assessed when pt is fully awake per orders. Vitals refused. Respirations 16, even and unlabored. Safety measures in place Call light within reach. Will continue to monitor.
[2017-08-18 04:00] VITALS: BP 135/99
--- NOTE | 2017-08-18 07:11 | NUR ---
END OF SHIFT Pt is a 27 y/o male admitted on 08/12/17 for ETOH, benzo, and opiate dependence. Pt was dependent on 15-18 beers daily, 3 mg of xanax daily, and oxycodone 30-90 mg daily. Pt is full code, NKA, regular diet, seizure/fall precautions. No known seizure history. Pt reports PMH of anxiety, SI (most recent attempt this month), fracture in right hand, and ADHD. Pt is on a 5 day Ativan and 5 day Subutex taper started on 08/13/17, tolerating well. Pt presented with moderate anxiety, mild restlessness, anhedonia, decreased appetite and flushed skin. Scheduled medications and PRN Benadryl administered, effective in S/S of withdrawal as verbalized by the pt. Last COW 1 CIWA 3 at 1999, all other COW/CIWAs deferred d/t pt laying in bed with eyes closed throughout the night. Pt slept 6 hours. Intake 2355 ml, void x 4, stool x 0. Safety measures in place. Call light within reach. Pts needs have been met. Endorsed to day shift nurse.
--- NOTE | 2017-08-18 07:30 | NUR ---
START OF SHIFT Pt 27 y/o male admitted for etoh, xanax, and hydrocodone substance abuse. Pt received in room on bed with eyes closed resting, but easily arousable to name. Perrla. Skin warm and slightly moist to touch. Respirations even and unlabored. It was reported that pt slept for 6 hours last night. Bed on lowest position with side rails x2 up for safety. Call light within reach. No distress noted at this time.
[2017-08-18 08:02] VITALS: BP 128/76
[2017-08-18] MEDS: GABAPENTIN 300 MG CAPSULE PO SCH ×2 (08:28→14:08)
[2017-08-18] MEDS: FOLIC ACID 1 MG TABLET PO SCH (08:28)
[2017-08-18] MEDS: MULTIVITAMINS,THERAPEUTIC TABLET PO SCH (08:28)
[2017-08-18] MEDS: DOCUSATE SODIUM 250 MG CAPSULE PO SCH (08:28)
[2017-08-18] MEDS: THIAMINE HCL 100 MG TABLET PO SCH (08:28)
[2017-08-18] MEDS ORDERED: BUPRENORPHINE HCL 2 MG TAB.SUBL SL SCH (09:00)
[2017-08-18] MEDS ORDERED: LORAZEPAM 1 MG TABLET PO SCH (09:00)
[2017-08-18 12:28] VITALS: BP 146/94
[2017-08-18] MEDS ORDERED: GABA-534 PO (12:48)
[2017-08-18] MEDS ORDERED: DICY20TA28 PO (12:48)
[2017-08-18] MEDS ORDERED: IBUP-1955 PO (12:48)
[2017-08-18] MEDS ORDERED: METH-406 PO (12:48)
[2017-08-18] MEDS ORDERED: DIPH50CA37 PO (12:48)
[2017-08-18] MEDS ORDERED: CLON0.1T14 PO (12:48)
--- NOTE | 2017-08-18 15:00 | NUR ---
DISCHARGED Pt 27 y/o male admitted for etoh, xanax, hydrocodone substance abuse. Pt discharged to [facility] via private transport. Pt alert and oriented to name, place, and time. Perrla. Skin warm and dry to touch. Respirations even and unlabored. All discharge papers, electronic prescriptions, and belongings packed in pt bag. No belongings in cassette. No home medications and pt clarified he did not bring any home medications. VS wnl. No distress noted.
== END 2017-08-18 15:00 | disposition other institution (70) | DRG 895 ==
LOC: SRC 11:28
PROVIDERS: ADMIT Internal Medicine; ATTEND Internal Medicine
DX: F10.232 Alcohol dependence with withdrawal with perceptual disturbance (principal); I15.9 Secondary hypertension, unspecified; F11.23 Opioid dependence with withdrawal; F13.232 Sedative, hypnotic or anxiolytic dependence with withdrawal with perceptual disturbance; Y90.6 Blood alcohol level of 120-199 mg/100 ml; F41.9 Anxiety disorder, unspecified; F90.9 Attention-deficit hyperactivity disorder, unspecified type; Z83.3 Family history of diabetes mellitus; Z81.1 Family history of alcohol abuse and dependence; Z81.8 Family history of other mental and behavioral disorders; Z91.5 Personal history of self-harm; K59.03 Drug induced constipation
CPT/HCPCS: 36415; 70030-TC; 80307; 80346; 83735; 85025; 86580; 86592; 86705; 86803; 87340; 87806; A4663; G0480; J3411; Q0162; Q0163